=== PATIENT | female | born 1965 | race American Indian/Alaskan Native ===

== ENCOUNTER 2018-10-22 21:55 | Emergency (ER) | payer BC, MEDICAID ==
--- NOTE | 2018-10-22 22:24 | ED PDOC ---
Arrival/HPI - General Chief Complaint: GI Problem Historian: Patient - History of Present Illness Narrative History of Present Illness (Text): 10/22/18 22:23 53 y/o female, pmh including htn, allergic to naproxen, c/o on and off rt. flank pain x 1 month. Pt. stated that she has on and off rt. flank pain x 1 month, concerning for obstructive renal stone. Pt. also reporting that her period has been abnormal, been feeling anxious lately due to her concerning for renal stone, last period couple days ago, resolved, not consistent with monthly, not sure if she is menopausal, scheduled to see obgyn regarding about this matter, no numbness or tingling, no other medical or psychological complaints. Past Medical History - Provider Review Nursing Documentation Reviewed: Yes - Infectious Disease Hx of Infectious Diseases: None - Cardiac Hx Cardiac Disorders: Yes Hx Hypertension: Yes (noncompliant c meds) - Pulmonary Hx Respiratory Disorders: No - Neurological Hx Neurological Disorder: No - HEENT Hx HEENT Disorder: No - Renal Hx Renal Disorder: Yes Hx Kidney Stones: Yes - Endocrine/Metabolic Hx Endocrine Disorders: No - Hematological/Oncological Hx Blood Disorders: No - Integumentary Hx Dermatological Disorder: No - Musculoskeletal/Rheumatological Hx Musculoskeletal Disorders: Yes Other/Comment: C5 injury - Gastrointestinal Hx Gastrointestinal Disorders: No - Genitourinary/Gynecological Hx Genitourinary Disorders: No - Psychiatric Hx Psychophysiologic Disorder: Yes Hx Depression: Yes Hx Substance Use: No - Surgical History Other/Comment: lithotripsy - Anesthesia Hx Anesthesia: Yes Hx Anesthesia Reactions: No Hx Malignant Hyperthermia: No Family/Social History - Physician Review Nursing Documentation Reviewed: Yes Family/Social History: Unknown Family HX Smoking Status: Former Smoker Hx Alcohol Use: Yes Frequency of alcohol use: Daily Hx Substance Use: No Allergies/Home Meds Allergies/Adverse Reactions: Allergies naproxen Adverse Reaction (Verified 10/22/18 22:08) DIZZINESS Home Medications: Home Meds Medication Instructions Recorded Confirmed Cyclobenzaprine [Flexeril] 5 mg PO BID 10/22/18 10/22/18 Gabapentin [Neurontin] 300 mg PO TID 10/22/18 10/22/18 Hydrochlorothiazide [Microzide] 25 mg PO DAILY 10/22/18 10/22/18 Ibuprofen [Motrin Tab] 800 mg PO TID 10/22/18 10/22/18 amLODIPine [Norvasc] 5 mg PO DAILY 10/22/18 10/22/18 Review of Systems - Review of Systems Constitutional: absent: Fatigue, Fevers Eyes: absent: Vision Changes ENT: absent: Hearing Changes Respiratory: absent: SOB, Cough Cardiovascular: absent: Chest Pain Gastrointestinal: absent: Abdominal Pain, Nausea, Vomiting Musculoskeletal: Back Pain Skin: absent: Rash Neurological: absent: Headache, Dizziness Psychiatric: absent: Anxiety, Depression, Suicidal Ideation Physical Exam Vital Signs Reviewed: Yes Vital Signs Temp Pulse Resp BP Pulse Ox 10/22/18 22:11 98.4 F 93 H 16 162/93 H 99 Temperature: Afebrile Blood Pressure: Hypertensive Pulse: Regular Respiratory Rate: Normal Appearance: Positive for: Well-Appearing, Non-Toxic, Comfortable Pain Distress: Mild Mental Status: Positive for: Alert and Oriented X 3 - Systems Exam Head: Present: Atraumatic, Normocephalic Pupils: Present: PERRL Extroacular Muscles: Present: EOMI Conjunctiva: Present: Normal Mouth: Present: Moist Mucous Membranes Neck: Present: Normal Range of Motion Respiratory/Chest: Present: Clear to Auscultation, Good Air Exchange. No: Respiratory Distress, Accessory Muscle Use Cardiovascular: Present: Regular Rate and Rhythm, Normal S1, S2. No: Murmurs Abdomen: No: Tenderness, Distention, Peritoneal Signs, Rebound, Guarding Genitourinary/Pelvic Exam: Present: Other (Pt. declined. ) Back: Present: Normal Inspection, Other (no rash). No: CVA Tenderness, Midline Tenderness, Paraspinal Tenderness, Pain with Leg Raise, Decubitus Ulcer Upper Extremity: Present: Normal Inspection, Normal ROM, NORMAL PULSES, Neurovascularly Intact, Capillary Refill < 2s. No: Cyanosis, Edema, Deformity Lower Extremity: Present: Normal Inspection, NORMAL PULSES, Normal ROM, Neurovascularly Intact, Capillary Refill < 2 s. No: Edema, Deformity Neurological: Present: GCS=15, CN II-XII Intact, Speech Normal, Motor Func Grossly Intact, Gait Normal, Memory Normal Skin: Present: Warm, Dry, Normal Color. No: Rashes Psychiatric: Present: Alert, Oriented x 3, Normal Insight, Normal Concentration Medical Decision Making ED Course and Treatment: 10/22/18 22:41 -labs -ua -CT abdomen and pelvis -Toradol -Observe and reassess 10/23/18 02:55 -EKG performed by the ER staff: NSR @ 81 BPM with LVH, no ST elevation or depression, no T wave inversion. -CT abdomen and pelvis: The uterus is enlarged and bulky containing multiple fibroids measuring up to 5 cm. 2 cm left ovarian cyst is seen. No urinary calculi are seen. -Labs show leukocytosis 15.8 from 17.4 after IVF, afebrile, advised to repeat in 2-3 days. -Lipase within normal limit -Trop within normal limit after24 hours -Lipase within normal limit -UA show +leukocyte, IV rocephine ordered, no signs of pylonephritis on the Ct scan. -Labs and radiology results discussed with the patient and advised outpatient repeat cbc in 2-3 days. -Case and labs/radiology results discussed with Dr. Cantrell and he recommend to discharge home with oral antibiotic with outpatient pmd follow up to repeat cbc. -Discharge home with keflex, tylenol for pain as needed, follow up with your own pmd and urologist/obgyn/flavor room worker and oncologist within 2 days, return to the ER for any new or worsening signs or symptoms. - RAD Interpretation Radiology Orders: EXAM: CT Abdomen and Pelvis without IV contrast CLINICAL HISTORY: Rt. flank pain x 1 month TECHNIQUE: Axial computed tomography images of the abdomen and pelvis without intravenous contrast. 371.77 mGy-cm CONTRAST: Without COMPARISON: None provided. FINDINGS: LUNG BASES: The lung bases appear clear. No pleural effusions are seen. LIVER: Unremarkable. GALLBLADDER AND BILE DUCTS: The gallbladder appears within normal limits. No radioopaque gallstones are seen. No biliary ductal dilatation is evident. PANCREAS: Unremarkable. SPLEEN: Unremarkable. ADRENAL GLANDS: Unremarkable. KIDNEYS, URETERS, AND BLADDER: The kidneys appear within normal limits. There is no hydronephrosis or hydroureter. No urinary calculi are seen. STOMACH AND BOWEL: Unremarkable appearance of the stomach and bowel. No evidence of bowel obstruction. No evidence suggesting enteritis or colitis. APPENDIX: No evidence of acute appendicitis on CT examination. PERITONEUM: No free fluid. No free air. LYMPH NODES: No lymphadenopathy is evident. REPRODUCTIVE: The uterus is enlarged and bulky containing multiple fibroids measuring up to 5 cm. 2 cm left ovarian cyst is seen. VASCULATURE: No evidence of abdominal aortic aneurysm. BONES: No aggressive appearing osseous lesion. No acute osseous pathology evident. IMPRESSION: The uterus is enlarged and bulky containing multiple fibroids measuring up to 5 cm. 2 cm left ovarian cyst is seen. No urinary calculi are seen. Electronically signed on Oct 23, 2018 2:00:15 AM EST by: Romel Santos M.D., MBA Certified By [facility] & [facility] Fellowship Trained MRI and CT Specialist Balance Assembler: Radiologist - EKG Interpretation EKG Interpretation (Text): 10/23/18 00:00 NSR @ 81 BPM with LVH, no ST elevation or depression, no T wave inversion. Interpreted by ED Physician: Yes Type: 12 lead EKG - PA / ASSOCIATE MANAGER / Resident Statement MD/DO has reviewed & agrees with the documentation as recorded. Disposition/Present on Arrival - Present on Arrival Any Indicators Present on Arrival: No History of DVT/PE: No History of Uncontrolled Diabetes: No Urinary Catheter: No History of Decub. Ulcer: No History Surgical Site Infection Following: None - Disposition Have Diagnosis and Disposition been Completed?: Yes Diagnosis: Ovarian cyst, Uterine fibroid, Leukocytosis, UTI (urinary tract infection) Disposition: HOME/ ROUTINE Disposition Time: 02:49 Patient Plan: Discharge Patient Problems: Current Active Problems Problem Status Onset Leukocytosis Acute Ovarian cyst Acute UTI (urinary tract infection) Acute Uterine fibroid Acute Condition: IMPROVED Additional Instructions: -Discharge home with keflex, tylenol for pain as needed, follow up with your own pmd and urologist/obgyn/flavor room worker and oncologist within 2 days, return to the ER for any new or worsening signs or symptoms. Prescriptions: Acetaminophen [Tylenol] 2 cap PO QID PRN #30 capsule PRN Reason: Other Cephalexin [cephalexin] 500 mg PO TID #30 cap Referrals: Rahat Dyer APN [Primary Care Provider] - Follow up with primary Danita Velazco MD [Staff Provider] - Follow up with primary Melba Dukes MD [Staff Provider] - Follow up with primary Femi Dominguez MD [Staff Provider] - Follow up with primary Forms: [employer] (Sami), WORK NOTE
[2018-10-23 00:07] LABS: ALB/GLOB RATIO 1.4 (1.1-1.8); ALBUMIN 4.5 g/dL (3.0-4.8); ALT/SGPT 26 U/L (7-56); AST/SGOT 21 U/L (14-36); BLOOD UREA NITROGEN 9 mg/dL (7-21); CALCIUM 9.6 mg/dL (8.4-10.5); GFR NON-AFRICAN AMERICAN > 60; LIPASE 19 U/L (23-300)
[2018-10-23 00:18] LABS: TROPONIN I < 0.01 ng/mL
[2018-10-23 00:21] LABS: BASO # 0.02 K/mm3 (0.0-2.0); BASO % 0.1 % (0.0-3.0); EOS # 0.1 (0.0-0.7); EOS % 0.3 % (1.5-5.0); GRAN # 13.66 (1.4-6.5); GRAN % 78.4 % (50.0-68.0); HEMOGLOBIN 13.2 g/dL (12.0-16.0); LYMPH # 2.6 (1.2-3.4); LYMPH % 14.7 % (22.0-35.0); MEAN CELL VOLUME 86.2 fl (80.0-105.0); MEAN CORPUSCULAR HEMOGLOBIN 28.1 pg (25.0-35.0); MEAN CORPUSCULAR HGB CONC 32.6 g/dl (31.0-37.0); MONO # 1.1 (0.1-0.6); MONO % 6.5 % (1.0-6.0); RBC 4.7 10^6/uL (3.5-6.1); RED CELL DISTRIBUTION WIDTH 14.9 % (11.5-14.5); WHITE BLOOD COUNT 17.4 10^3/uL (4.5-11.0)
[2018-10-23 00:35] LABS: URINE BILIRUBIN NEGATIVE (NEGATIVE); URINE BLOOD MODERATE (NEGATIVE); URINE GLUCOSE (UA) NEGATIVE (NEGATIVE); URINE LEUKOCYTE ESTERASE TRACE Leu/uL (NEGATIVE); URINE PROTEIN NEGATIVE mg/dL (<30 mg/dL); URINE UROBILINOGEN 0.2 E.U./dL (<1 E.U./dL)
[2018-10-23 00:38] LABS: URINE APPEARANCE SL CLOUDY (CLEAR); URINE COLOR YELLOW (YELLOW)
[2018-10-23 00:40] LABS: URINE BACTERIA FEW /hpf
[2018-10-23] MEDS ORDERED: Sodium Chloride 0.9% 1,000 ML IV STA (00:56)
[2018-10-23 02:31] LABS: BASO # 0.03 K/mm3 (0.0-2.0); BASO % 0.2 % (0.0-3.0); EOS % 0.3 % (1.5-5.0); GRAN # 11.73 (1.4-6.5); GRAN % 74.3 % (50.0-68.0); HEMOGLOBIN 12.1 g/dL (12.0-16.0); LYMPH # 2.6 (1.2-3.4); LYMPH % 16.6 % (22.0-35.0); MEAN CELL VOLUME 85.6 fl (80.0-105.0); MEAN CORPUSCULAR HEMOGLOBIN 27.6 pg (25.0-35.0); MEAN CORPUSCULAR HGB CONC 32.3 g/dl (31.0-37.0); MEAN PLATELET VOLUME 9.6 fl (7.0-11.0); MONO # 1.4 (0.1-0.6); MONO % 8.6 % (1.0-6.0); RBC 4.38 10^6/uL (3.5-6.1); RED CELL DISTRIBUTION WIDTH 14.7 % (11.5-14.5); WHITE BLOOD COUNT 15.8 10^3/uL (4.5-11.0)
[2018-10-23] MEDS ORDERED: cefTRIAXone 1 gm 1 GM/100 ML BAG IVPB STA (02:55)
[2018-10-23 04:49] VITALS: BP 142/72; PULSE 70; RESP 18; TEMP 98.1; O2SAT 100
--- NOTE | 2018-10-23 11:34 | CT ---
Date of service: 10/23/2018 PROCEDURE: CT Abdomen and Pelvis without intravenous contrast HISTORY: rt. flank pain x 1 month COMPARISON: None. TECHNIQUE: Without contrast.. Contrast dose: Radiation dose: Total exam DLP = 371.77 mGy-cm. This CT exam was performed using one or more of the following dose reduction techniques: Automated exposure control, adjustment of the mA and/or kV according to patient size, and/or use of iterative reconstruction technique. FINDINGS: LOWER THORAX: Unremarkable. LIVER: Unremarkable. No gross lesion or ductal dilatation. GALLBLADDER AND BILE DUCTS: Unremarkable. PANCREAS: Unremarkable. No gross lesion or ductal dilatation. SPLEEN: Unremarkable. ADRENALS: Unremarkable. No mass. KIDNEYS AND URETERS: Unremarkable. No hydronephrosis. No solid mass. VASCULATURE: Unremarkable. No aortic aneurysm. No aortic atherosclerotic calcification or mural plaque present. BOWEL: Unremarkable. No obstruction. No gross mural thickening. APPENDIX: Unremarkable. Normal appendix. PERITONEUM: Unremarkable. No free fluid. No free air. LYMPH NODES: Unremarkable. No enlarged lymph nodes. BLADDER: Unremarkable. REPRODUCTIVE: There is an enlarged lobulated fibroid uterus BONES: No acute fracture. OTHER FINDINGS: The report concurs with the preliminary [facility] report IMPRESSION: No acute findings. No evidence of urolithiasis. Fibroid uterus
--- NOTE | 2018-10-23 19:46 | CARD ---
APPROVED REPORT Date of service: 10/22/2018 EKG Measurement Heart [id number] <Conclusion> Normal sinus rhythm Possible Left atrial enlargement Left ventricular hypertrophy Abnormal ECG
== END 2018-10-23 04:10 | disposition home or self-care (01) ==
LOC: ED 21:55
DX: N39.0 Urinary tract infection, site not specified (principal); N83.202 Unspecified ovarian cyst, left side; D25.9 Leiomyoma of uterus, unspecified; D72.829 Elevated white blood cell count, unspecified; I10 Essential (primary) hypertension; Z87.442 Personal history of urinary calculi; Z87.891 Personal history of nicotine dependence
CPT/HCPCS: 74176; 80053; 81001; 83690; 83735; 84484; 85025; 87086; 93005; 96365; 96375; 99284; J0696; J1885; J7030